=== PATIENT | female | born 1925 | race Caucasian/White ===

== ENCOUNTER 2016-09-16 11:45 | Inpatient (IN) | payer MEDICARE ==
[~2016-09-16] VITALS: Ht 162.6 cm; Wt 91.4 kg
--- NOTE | ~2016-09-16 | ECH ---
Transthoracic Echocardiography Report (TTE) Demographics Patient Name OSMIN WEAVER Date of Study 09/19/2016 Patient Number [id number] Visit Number [id number] Date of 1925 Room Number 308 Accession Number [id number] Gender Female Age 89 year(s) Referring Abdulaziz Lezama Ice Platform Supervisor Sherrell Walter Physician [facility] Chirag Vasquez MD Physician Interpreting Kassandra DIAZ Glass Beveler Physician Maury Supervising Ordering Physician Abdulaziz Lezama MD/JACKIE DIAZ Nurse Stress Manager Medical Device Conclusions Contractility Score Summary Normal Left Ventricular contractility was noted. Summary Limited exam to evaluate change/worsening murmur. The estimated left ventricular ejection fraction is 60%. Severe biatrial enlargement. Moderate mitral regurgitation by color Doppler. There is trivial aortic regurgitation by color Doppler. Moderate-severe tricuspid regurgitation by color Doppler. There is moderate pulmonary hypertension. The pulmonary pressure (RVSP) is 47 mmHg. Pulmonary pressures minimally increased from 39 mmHg on previous exam of 09/16/2016. Recommendation The patient will be given the results of this study by the physician who ordered the exam. Procedure Type of Study TTE procedure:Echo Limited SF. Procedure Date Date: 09/19/2016 Start: 02:04 PM Technical Quality: Adequate visualization Indications:Atrial fibrillation, non-ischemic cardiomyopathy, Congestive heart failure and Hypertension. Additional Indications:Worsening murmur Appropriate Use Criteria: 9 Height: 64 inches Weight: 184 pounds BSA: 1.89 m Rhythm: Paced HR: 70 bpm BP: 115/53 mmHg Doppler Measurements TR Velocity:3.25 m/s TR Gradient:42.25 mmHg Estimated RAP:5 mmHg Estimated PASP: 47.25 mmHg Estimated RVSP: 47 mmHg Findings Left Atrium The left atrium is severely dilated. Right Atrium The right atrium is severely dilated. Mitral Valve Normal mitral valve structure and function. Mild-moderate mitral regurgitation by color Doppler. Aortic Valve The aortic valve is mildly sclerotic. There is trivial aortic regurgitation by color Doppler. Tricuspid Valve Normal tricuspid valve structure and function. Moderate-severe tricuspid regurgitation by color Doppler. There is moderate pulmonary hypertension. The pulmonary pressure (RVSP) is 47 mmHg. Pulmonic Valve Normal pulmonic valve structure and function. Mild pulmonic valve regurgitation by color Doppler. Contractility Score LV regional wall motion:(0-Non visualized 1-Normal 2-Hypokinesis 3-Akinesis 4-Dyskinesis 5-Aneurysm) Signature
--- NOTE | ~2016-09-16 | ECH ---
Transthoracic Echocardiography Report (TTE) Demographics Patient Name OSMIN WEAVER Date of Study 09/16/2016 Patient Number [id number] Visit Number [id number] Date of 1925 Room Number 308 Accession Number [id number] Gender Female Age 89 year(s) Referring King Kevin Hutson MD Mailroom Coordinator Enma Guzman [facility] Physician Chirag Vasquez MD Physician Interpreting King Kevin Hutson MD Differential Specialist Physician Supervising Ordering Physician Chirag Vasquez MD/JACKIE DIAZ Nurse Stress Target Protection Specialist Conclusions Summary Technically fair exam. The estimated left ventricular ejection fraction is 55% in underlying atrial fibrillation. The left ventricle is mildly dilated . The interventricular septum is flattened which is consistent with right ventricular pressure / and or volume overload. Mildly dilated right ventricle. The left atrium is severely dilated by LA volume index measurement. The right atrium is severely dilated. Moderate mitral regurgitation by color Doppler. There is trivial aortic regurgitation by color Doppler. Moderate-severe tricuspid regurgitation by color Doppler. There is mild pulmonary hypertension. The pulmonary pressure (RVSP) is 39mmHg. Visualized portions of the aortic root and ascending aorta appear normal in size.IVC mildly dilated with poor inspiratory collapse. Procedure Type of Study TTE procedure:Echo Complete SF. Procedure Date Date: 09/16/2016 Start: 02:06 PM Technical Quality: Fair due to patient immobility. Indications:Atrial fibrillation, non-ischemic cardiomyopathy and Congestive heart failure. Appropriate Use Criteria: 9 Height: 64 inches Weight: 184 pounds BSA: 1.89 m Rhythm: Irregular HR: 52 bpm BP: 74/44 mmHg M-Mode/2D Measurements LV Diastolic Dimension: 5.55 cm LV Systolic Dimension: 3.11 cm LV Septum Diastolic: 0.89 cm LV PW Diastolic: 0.96 cm AO Root Dimension: 2.55 cm Cardiac Output: 1.56 l/min LA Dimension: 5.48 cm Cardiac Index: 0.83 l/min*m RV Diastolic Dimension: 4.82 cm LA volume index: 113 ml/m LVOT: 1.76 cm LVOT VTI: 12.31 cm RV Base: 5.2 cm LV Stroke volume: 29.93 ml RV Mid: 3.5 cm LV Stroke volume index: 15.84 ml/m RV Length: 6.7 cm Doppler Measurements AV Peak Velocity: 1.4 m/s MV Peak E-Wave: 0.65 m/s AV Peak Gradient: 7.84 mmHg LVOT Peak Velocity: 0.67 m/s TR Velocity:2.45 m/s TR Gradient:24.01 mmHg Estimated RAP:15 mmHg Estimated PASP: 39.01 mmHg Estimated RVSP: 39 mmHg RA Area: 34.86 cm Findings Left Ventricle The left ventricle is mildly dilated . Diastolic function indeterminate due to patient's arrhythmia. The interventricular septum is flattened which is consistent with right ventricular pressure / and or volume overload. Right Ventricle Mildly dilated right ventricle. Device lead noted in the right ventricle. Left Atrium The left atrium is severely dilated by LA volume index measurement. Right Atrium The right atrium is severely dilated. Device lead seen in the right atrium. Mitral Valve Mild thickening of the mitral valve leaflets. Moderate mitral regurgitation by color Doppler. Aortic Valve The aortic valve was not well imaged but appears moderately sclerotic. There is trivial aortic regurgitation by color Doppler. Tricuspid Valve Normal appearing tricuspid valve. Moderate-severe tricuspid regurgitation by color Doppler. There is mild pulmonary hypertension. The pulmonary pressure (RVSP) is 39mmHg. Pulmonic Valve The pulmonic valve is not well visualized. Pericardial Effusion No evidence of pericardial effusion. Miscellaneous Visualized portions of the aortic root and ascending aorta appear normal in size.IVC mildly dilated with poor inspiratory collapse. Pleural Effusion No evidence of pleural effusion. Contractility Score LV regional wall motion:(0-Non visualized 1-Normal 2-Hypokinesis 3-Akinesis 4-Dyskinesis 5-Aneurysm) Signature
[~2016-09-16 11:45] MED LIST: ALDACTONE DPS25 MG PO; ASPIR 8181 MG PO; COUMADIN DPS2 MG PO; DIOVAN80 MG PO; LASIX DPS40 MG PO; SYNTHROID DP0.125 MG PO; TOPROL XL DPS50 MG PO
--- NOTE | 2016-09-17 09:36 | HP ---
ADMIT: 09/16/2016 RM/LOC: 308 [facility] MR#: [id number] [address] [address] [address] [place] [address] History and Physical SEX: F AGE: 89 : 1925 DATE OF SERVICE: CHIEF COMPLAINT: Abdominal pain, further evaluation of pelvic mass. HISTORY OF PRESENT ILLNESS: Ms. Weaver is an 89-year-old female. She has a past medical history significant for history of atrial fibrillation, hypertension, hypothyroidism, history of colon cancer, status post resection as well as a previous history of coronary artery disease, who was transferred from [place] today. Patient was seen in [place] and admitted 09/15 for abdominal pain. She notes she had 2-3 weeks of abdominal pain. She notes she has been having right shoulder pain as well. She reports the pain is intermittent. She is not sure of anything that makes the pain better or worse. She was seen and evaluated yesterday in [place] and at that time, actually sounds like she had a CT scan which did show a right pelvic mass as well as right upper quadrant pain. They had spoken with Dr. Gaitan and decision was made to transfer patient here for further evaluation. Of note, it sounds as if she was also noted to be having some CHF and they went ahead and apparently did some diuresis, but then also had a CT scan with contrast and apparently with that they decided to do some gentle hydration. On admission here, her vital signs show that her systolics in the 70s which apparently looks like it has been running in the 80s last 24 hours. The patient is unaware that she has had trouble with hypotension in the past. She denies any change in her ostomy output. Otherwise really denies any other symptoms. PAST MEDICAL HISTORY: Significant for: 1. Atrial fibrillation on chronic anticoagulation. 2. Hypertension. 3. Hypothyroidism. 4. History of colon cancer with apparently resection and ostomy placement over 26 years ago. 5. Status post right total hip arthroplasty in 2015. 6. Gout. 7. Possible history of coronary artery disease. 8. Status post thyroidectomy. 9. History of gastroesophageal reflux disease. ALLERGIES: HER ALLERGIES ARE CODEINE WELL AVELOX. MEDICATIONS: At home currently are: 1. Allopurinol 100 mg p.o. daily. 2. Macrobid, she was finishing for UTI. 3. Coumadin 3 mg daily. 4. Valsartan 80 mg daily. 5. Spironolactone 25 mg p.o. daily. 6. Toprol 150 p.o. daily. 7. Levothyroxine 125 mcg p.o. daily. 8. Furosemide 40 mg p.o. daily. 9. Aspirin 81 mg p.o. daily. ADMIT: 09/16/2016 RM/LOC: 308 [facility] MR#: [id number] [address] [address] OSMIN WEAVER [address] [place] [address] History and Physical SEX: F AGE: 89 : 1925 FAMILY HISTORY: Mother from a stroke. Father also . Brother from unknown health causes and has a sister who from heart issues. SOCIAL HISTORY: She is , lives with her son. She does not use any significant alcohol or smoke. REVIEW OF SYSTEMS: Obtained. She does report that she has been having some increased shortness of breath. She denies any cough, fevers, or any other complaints. PHYSICAL EXAMINATION: GENERAL: She is alert and oriented. She really appears to be in no apparent distress. HEENT: Pupils are round, reactive. Oropharynx has dry mucous membranes. NECK: Supple. She does have marked JVD up to the neck. HEART: Very distant. Normal rate. LUNGS: A few crackles bilaterally. ABDOMEN: Soft. Bowel sounds are present. She does have an ostomy that is intact. She does have some kind of right mid epigastric pain on palpation. EXTREMITIES: Have 1+ lower extremity edema. ASSESSMENT/PLAN: 1. Abdominal pain. At this time with her associated right shoulder pain, I am suspicious of possible gallbladder disorder, has had an ultrasound I believe. We will ask Surgery to see to review this. 2. Right pelvic mass. 3. Supratherapeutic INR. We will recheck it. 4. Hypotension, etiology of this is unclear. We will try to maintain a goal systolic at least greater than 80. We will ask Cardiology to see. Place her on a dopamine drip if needed. 5. Acute congestive heart failure. We will get an echo to evaluate the kind of CHF that she has. 6. Atrial fibrillation. 7. Elevated creatinine. I assume this is acute. She did have a creatinine in 2014 that was 1.1. 8. Hypothyroidism. We will go ahead and check a TSH. I did spend 40 minutes in the admission and evaluation of this patient. Janeen Beard MD/ iliana JOB #: [id number] CC: Janeen Beard, Attending Physician UNKNOWN, Family Physician
[2016-09-22] MEDS ORDERED: TOPROL XL DPS25 MG PO (09:18)
[2016-09-22] MEDS ORDERED: LASIX DPS40 MG PO (09:18)
[2016-09-22] MEDS ORDERED: ASPIR 8181 MG PO (09:19)
[2016-09-22] MEDS ORDERED: ZYLOPRIM-DPS100 MG PO (09:19)
[2016-09-22] MEDS ORDERED: COUMADIN DPS3 MG PO (09:19)
[2016-09-22] MEDS ORDERED: SYNTHROID DP0.125 MG PO (09:19)
[2016-09-22] MEDS ORDERED: TYLENOL DPS325 MG PO (09:20)
[2016-09-22] MEDS ORDERED: AUGMENTIN 500-1 EACH PO (09:20)
--- NOTE | 2016-09-26 17:02 | CO ---
ADMIT: 09/16/2016 RM/LOC: 308 [facility] MR#: [id number] [address] [address] [address] [place] [address] Consultation SEX: F AGE: 89 : 1925 DATE OF CONSULTATION: 09/16/2016 ATTENDING PHYSICIAN: Janeen Beard CONSULTING PHYSICIAN: Kevin Klein MD REASON FOR CONSULTATION: Hypotension, CHF. HISTORY OF PRESENT ILLNESS: Osmin is a pleasant 89-year-old female, who was admitted for further workup of newly discovered pelvic mass. She had been hospitalized in [place], [place] for abdominal pain, CHF exacerbation, and chronic kidney disease exacerbation. She was subsequently transferred here for further workup and management of these chronic problems. She has been hypotensive, and on arrival, she was given a fluid bolus as well as initiated on dopamine drip. She currently has no chest pain, palpitations, or increased shortness of breath. She does have some ongoing nausea which she states just started today. She states that over the last two weeks, she has had some increased swelling in her legs. CARDIAC HISTORY AND RISK FACTORS: She is known to our group and follows with Dr. Cintron regularly in [place], [place]. She has a history of chronic systolic heart failure, most recently described by Dr. Cintron in June 2016 as NYHA class III. She has a history of non-ischemic cardiomyopathy with an ejection fraction of 45% documented in February of 2016. She has had moderate to severe mitral regurgitation and tricuspid regurgitation. She is status post atrioventricular abimael ablation and biventricular pacemaker implantation for permanent atrial fibrillation. She has a history of hypertension which she states has been present over the last 60 years. Osmin is a lifetime never smoker. Her hypertension history is significant in that she states it has been present for 60 years. She denies having high blood cholesterol or diabetes. She has a family history of heart disease in her mother with myocardial infarction, and one sister with heart problems. She states her mother also suffered from a stroke. PAST MEDICAL HISTORY: Cardiac history as described above. She also has ongoing chronic kidney disease, gout, and a history of thyroid problems for which she is on thyroid hormone replacement. She has a distant history of colorectal cancer which she states she underwent surgery and chemotherapy greater than 35 years ago. She also suffers from osteoarthritis. SURGICAL HISTORY: Right hip replacement 3 years ago. Thyroid removal 25 years ago per patient report. Partial colectomy with ostomy placement about 35 years ago per patient. AV node ablation and biventricular pacemaker implantation 2008. ALLERGIES: SHE IS ALLERGIC TO QUINOLONES, CODEINE, AND MOXIFLOXACIN. ADMIT: 09/16/2016 RM/LOC: 308 [facility] MR#: [id number] [address] [place] [id number] OWEN[place]MIN Hubert [address] [facility] [place] [address] Consultation SEX: F AGE: 89 : 1925 CURRENT MEDICATIONS: 1. Synthroid. 2. Zyloprim. 3. Dopamine drip. 4. Normal saline. 5. Zofran as needed. 6. Morphine as needed. 7. Nitrostat as needed. HOME MEDICATIONS: 1. Furosemide. 2. Nitrofurantoin. 3. Metoprolol succinate. 4. Spironolactone. 5. Valsartan. 6. Allopurinol. 7. Levothyroxine. 8. Warfarin. 9. Aspirin. FAMILY HISTORY: Significant for heart disease in her mother and one sister. Her mother also suffered from a stroke. She states that there is a positive family history of cancer on her dad's side. 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 Her son lives in her home with her to help take care of her. She has 3 sons and one daughter. She consumes two cups of coffee per day. She denies use of alcohol or other illegal drugs. REVIEW OF SYSTEMS: GENERAL: Positive fatigue. Negative fever, chills, sweats, rash, or weight loss. EYES: Denies double vision, blurred vision, cataracts, or glaucoma. ENT: Denies hearing loss or problems with nose, mouth or throat. PULMONARY: Positive for intermittent cough. Denies sputum production, asthma, emphysema or bronchitis. Denies snoring loudly, wakefulness at night, or fatigue upon awakening. GASTROINTESTINAL: Denies heartburn or difficulty swallowing. No change in bowel habits. Denies dark or bloody stools. No history of ulcers, hiatal hernia, or gallbladder or liver disease. GENITOURINARY: Denies dysuria, hematuria, nocturia, urinary tract infection, or kidney stones. Denies history of renal insufficiency or failure. MUSCULOSKELETAL: Positive for arthritis and gout. Negative for muscle or other joint disease. ENDOCRINE: Positive for thyroid problems. Negative for diabetes. HEMATOLOGIC: Denies history of anemia, easy bruising. NEUROLOGIC: Denies chronic headaches, dizziness, syncope, stroke, seizures or numbness or tingling. PSYCHIATRIC: Denies history of mental illness or feelings of depression. ADMIT: 09/16/2016 RM/LOC: [address] [place] [address] MR#: [id number] [address] [place] [phone] OSMIN WEAVER [address] [place] [phone] Consultation SEX: F AGE: 89 : 1925 PHYSICAL EXAMINATION: VITAL SIGNS: Blood pressure 103/58, pulse 71, temp 96.3, and O2 saturation 100%. GENERAL: She is alert and oriented x3. SKIN: [place], warm and dry. EYES: Sclerae clear. No xanthelasmas. ENT: Oral mucosa is pink and moist. Positive for JVD. No carotid bruits. CHEST: Respirations are even and unlabored. Decreased breath sounds. HEART: Irregular. No murmurs, rubs or gallops. ABDOMEN: Soft and nontender. Positive bowel sounds. MUSCULOSKELETAL: Gait is normal. EXTREMITIES: Peripheral pulses palpable. No clubbing or cyanosis. Mild bilateral lower extremity edema. PSYCHIATRIC: Alert and oriented. Mood and affect are appropriate. DIAGNOSTIC STUDIES: WBC 5.4, hemoglobin 12.3, hematocrit 37.9, and platelets 176. Urea 101, creatinine 2.7, INR 3.3. CK 68, MB 2.9, troponin 0.031. TSH 3.39. Chest x-ray performed today revealed cardiomegaly and suspicious right lung base nodule. EKG reveals ventricular paced complexes. Echocardiogram repeated today revealed an ejection fraction of 50% to 55% as read by Dr. Klein. ASSESSMENT: per Dr. Klein: 1. Hypotension. 2. Permanent atrial fibrillation. 3. Non-ischemic cardiomyopathy with biventricular pacemaker. 4. Pelvic mass. 5. Chronic kidney disease. PLAN: We will continue to support pressors for now with dopamine and intravenous fluids. If there were signs of pulmonary edema, we would need to start her on IV Lasix. Her JVD and edema are likely related to high right- sided pressures from dilated right ventricle and tricuspid regurgitation. We will continue her on her current medications. We will defer anticoagulation to primary care due to possible need for biopsy or surgery for the mass. We will continue to follow closely. JULIO C Esquivel Student / Kevin Klein MD / alfreditol JOB #: [id number] CC: Janeen Beard, Attending Physician ADMIT: 09/16/2016 RM/LOC: 308 [facility] MR#: [id number] [address] [address] [address] [place] [address] Consultation SEX: F AGE: 89 : 1925 UNKNOWN, Family Physician
--- NOTE | 2016-09-30 01:17 | DS ---
ADMIT: 09/16/2016 RM/LOC: 519 [facility] MR#: [id number] [address] [address] [address] [place] [address] Discharge Summary SEX: F AGE: 89 : 1925 ADMISSION DATE: 09/16/2016 DISCHARGE DATE: 09/21/2016 DIAGNOSES: 1. Abdominal pain (right upper quadrant). 2. Pelvic mass. 3. A fib (trial fibrillation) - permanent. 4. Hypothyroidism. 5. Gout. 6. Chronic systolic heart failure. 7. Nonischemic cardiomyopathy with biventricular pacemaker. 8. Hypotension - resolved. 9. Urinary tract infection. 10.Acute kidney injury. 11.Weakness. 12.Right pulmonary nodule on chest x-ray. CONSULTS: 1. Cardiology with [facility]. 2. Interventional Radiology. 3. Surgery. PROCEDURE: Echocardiogram 09/16/2016 and 09/19/2016. Abdominal mass biopsy 09/20/2016 - CT guided. REASON FOR HOSPITALIZATION: Abdominal pain with pelvic mass, see dictated H and P. LABORATORY AND X-RAY DATA: Echocardiogram on 09/17/2015 was technically difficult but showed an EF of 55%, interventricular septum flattening consistent with right ventricular pressure or volume overload, moderate mitral regurgitation, some other valvular issues as well as moderate severe tricuspid regurgitation. Pulmonary pressure RVSP of 39. Repeat echo performed on 09/19/2016 did show an ejection fraction of 60%, severe biatrial enlargement, moderate mitral regurgitation, [id number] tricuspid regurgitation, moderate pulmonary hypertension with RVSP of 47. Sodium 147, potassium 4.5, chloride 118, CO2 18, BUN 101, down to 38, creatinine 2.7, down to 1.1. Blood sugar variable, calcium 8.1, total bilirubin was 0.6, direct 0.2, total protein was 6.3, albumin 3, alkaline phosphatase 66, AST 17, ALT 17, GFR 45. CPK 68, CK-MB 2.9, CA-125 70.4, TSH 3.39. INR on admission was 3.3, final value 1.31. White count was 6.8, hemoglobin 11.6, platelet count 161, cortisol 19.3. Urine creatinine was 70.5, urine sodium 8. Urine culture was unremarkable. Chest x-ray with cardiomegaly and a right lung base round nodule with a likely granuloma - suggest CT of the chest if indicated. HOSPITAL COURSE: Osmin was transferred down from outside facility mainly for a surgical consultation and possible biopsy. On arrival, she was placed in intensive care unit because of her underlying cardiovascular issues in congestive heart failure as well as acute renal failure. She was initially ADMIT: 09/16/2016 RM/LOC: 519 [facility] MR#: [id number] [address] [address] OSMIN WEAVER [address] [address] [address] [place] [address] Discharge Summary SEX: F AGE: 89 : 1925 given some fluids. Cardiology and surgery were asked to see. Echocardiogram was performed. She did have a few of her home medications continued except her Coumadin. Surgery did see. WILLIAM also was following. Due to her pressures, they did give her dopamine to see if that would assist with things. Her renal function had modestly improved. She was also placed on Zosyn for a possible UTI. This was given IV and then subsequently changed to Augmentin. Most of her other home medications were held. Her activity was gradually increased. INR was allowed to drift down to allow for further testing. Family and patient desired at least biopsy to see what this could be. Her CA- 125 was elevated making it suspect for an ovarian cancer primary. We continued to manage her fluid status with improvement of her renal function. It was clear that she would need assistance, as she is quite weak and short of breath. For this reason, placement was looked into closer to home per her preference. A facility was found. She did undergo a CT-guided biopsy of the pelvic mass. Results are still pending. She was going to follow up as an outpatient once the results were known and decide what treatment strategy should be entertained. On the day of discharge, she was a little more dyspneic, which goes along with the fact that she was not on diuretics and had rather significant valvular issues among other things. She was restarted on her Lasix and a lower dose of the Toprol because of her hypotension that she had throughout this hospital stay. She was a little anxious to hear about the result, but of course, we did not have them before she left. In addition, we restarted her Coumadin, and we will let this come up slowly. At this time, biopsy is pending. She did have a questionable nodule found on a chest x-ray, so it was suggested that she have followup, probable CT scan, with the issues that are going on. The nodule was not commented on on 09/19/2016, but I suspect it is probably there. At this time, she is dismissed to [facility] in a swing bed capacity. Medications will include: 1. Augmentin 500 b.i.d. for additional 5 days for her urine. 2. Synthroid 0.0125 mg daily. 3. Allopurinol 100 mg daily. 4. Tylenol 650 q.4h p.r.n. 5. Lasix 40 mg daily. 6. Metoprolol ER 25 mg daily. 7. Coumadin 3 mg daily. 8. Aspirin 81 mg daily. ADMIT: 09/16/2016 RM/LOC: 519 [facility] MR#: [id number] [address] [place] [phone] [address] [place] [id number] Discharge Summary SEX: F AGE: 89 : 1925 She will have lab on Friday including a CBC, BMP and protime. She should see her primary doctor next week, which I believe is Dr. Barrientos. Overall, prognosis is fair. Time spent 50 minutes. Ava Hodge MD/ dotty JOB #: [id number] CC: Janeen Beard MD, Attending Physician UNKNOWN, Family Physician . [facility] [place] MD Noé Cuevas MD Jeffrey K King, MD
--- NOTE | 2016-10-07 08:53 | CO ---
ADMIT: 09/16/2016 RM/LOC: 308 [facility] MR#: [id number] [address] [address] [address] [place] [address] Consultation SEX: F AGE: 89 : 1925 DATE OF CONSULTATION: 09/16/2016 ATTENDING PHYSICIAN: Janeen Beard CONSULTING PHYSICIAN: Alexis Pleitez MD REASON FOR CONSULTATION: Mass found on abdominal CT. HISTORY OF PRESENT ILLNESS: Osmin is a very pleasant 89-year-old female, who apparently has been having on and off abdominal pain for the last 2 to 3 weeks. It can be sharp in nature at sometimes. She has also felt nauseous from this, but denies any emesis. She has also noticed some weight loss in the last month or so but cannot determine exactly how much she has lost. She denies any diarrhea, constipation, dark or bloody stools. She further denies any fever, chills, or night sweats. Of note, the patient did have a colectomy with colostomy placement for colon cancer approximately 40 years [address] performed [address] De La Torre. She was previously seen in [place] for these complaints, where at that time, it was noted that she was hypotensive and with the request to workup a 10 cm mass found on CT, she was transferred to our facility for surgical management. PAST MEDICAL HISTORY: Significant for: 1. Hypertension. 2. Coronary artery disease. 3. Atrial fibrillation. 4. Gout. 5. Hypothyroidism. PAST SURGICAL HISTORY: 1. Colon resection with end colostomy performed by Dr. De La Torre, approximately 40 years ago. 2. Laparoscopic left inguinal hernia. 3. EGD. ALLERGIES: CODEINE, QUINOLONES, AND FLOXIN. FAMILY HISTORY: Noncontributory. SOCIAL HISTORY: The patient denies any tobacco, alcohol, or illicit drug use. REVIEW OF SYSTEMS: CONSTITUTIONAL: The patient denies any fever, chills, or night sweats. The rest of comprehensive 10-point review of systems was performed and all other systems are negative. PHYSICAL EXAMINATION: GENERAL: The patient is in no acute distress. She is alert and oriented. HEENT: Head is normocephalic and atraumatic. EOMS are intact. Conjunctivae free of icterus, erythema, or pallor. Pinnae, free of deformities. Nose, midline. No tracheal deviation. ADMIT: 09/16/2016 RM/LOC: 308 [facility] MR#: [id number] [address] [address] [address] [place] [address] Consultation SEX: F AGE: 89 : 1925 NECK: Supple. SKIN: Negative for jaundice, clubbing, edema, pallor, or cyanosis. LUNGS: Clear to auscultation bilaterally. Normal respiratory effort. HEART: Irregularly irregular rhythm noted upon auscultation. No murmurs noted. ABDOMEN: Soft, nondistended, but swelling in the left lower quadrant, consistent for a peristomal hernia. Mild tenderness diffuse throughout abdomen. Ostomy in place with stool in the bag. DIAGNOSTIC IMAGING: CT of abdomen and pelvis performed in [place] revealed a mass involving the lower pelvis in the cul-de-sac region with small amount ascites and stable large left lower quadrant abdominal wall hernia containing colon but nothing for obstruction. ASSESSMENT: Abdominal mass. PLAN: Per the patient they want this mass worked up, which is why she has transferred to our facility. So far, I have only had access to the CT read performed in [place], so I am waiting to see the CD and operative report performed by Dr. De La Torre from her surgery. I guess at that time, part of her uterus was resected during the operation. In the meantime, I will make sure she is comfortable and we will treat the hypotension before considering any surgical intervention. I have notified Dr. Pleitez of this consult and the patient is in agreement of this plan, had all her questions answered, and would like to proceed. Thank for the consultation of this patient. JULIO C Shine / Alexis Pleitez MD / iliana JOB #: [id number] CC: Janeen Beard, Attending Physician UNKNOWN, Family Physician
--- NOTE | 2016-10-07 08:53 | CO ---
ADMIT: 09/16/2016 RM/LOC: 519 [facility] MR#: [id number] [address] [address] [address] [place] [address] Consultation SEX: F AGE: 89 : 1925 Corrected: 09/25/2016 1216 njv DATE OF CONSULTATION: 09/16/2016 ATTENDING PHYSICIAN: Janeen Beard CONSULTING PHYSICIAN: Alexis Pleitez MD HISTORY OF PRESENT ILLNESS: The patient is an 89-year-old female, patient of Dr. Beard's, who has been admitted for nonspecific abdominal discomfort for the last several weeks, some nausea, and weight loss, who has had previous colectomy in the past and end colostomy for colon cancer by Dr. De La Torre many years ago. She is noted to be hypotensive, possibly septic, and has been treated by Dr. Beard. On radiographic workup was found have a pelvic mass. I was asked to see for assistance in evaluation. Her past medical history, surgical history, allergies, family history, social history, and review of systems are outlined by Pool's note. PHYSICAL EXAMINATION: VITAL SIGNS: She is afebrile. Vitals are stable. HEART: Irregularly irregular. LUNGS: Decreased breath sounds in the bases. ABDOMEN: Soft, nondistended, and nontender with stool in her ostomy bag with a peristomal hernia. ASSESSMENT AND PLAN: The patient is an 89-year-old with hypertension of unknown origin, currently on pressors and antibiotics. Once stable, we will work on getting her likely arranged for interventional biopsy of this pelvic mass. I do not know if family or the patient is interested in any type of surgical intervention other than just trying to figure out what is the origin of the mass. Alexis Pleitez MD/ iliana JOB #: [id number] CC: Janeen Beard, Attending Physician UNKNOWN, Family Physician Corrected: 09/25/2016 1216 njv
[2016-11-07] MEDS ORDERED: DUONEB DPS3 ML IH (18:57)
[2016-11-07] MEDS ORDERED: ASA CHILDREN'S81 MG NG (18:57)
[2016-11-07] MEDS ORDERED: ROBITUSSIN100 MG/5 M NG (18:58)
== END 2016-09-21 12:07 | DRG 315 ==
LOC: 3ICU 11:45 → 5MS 09-20 17:31
PROVIDERS: ADMIT Internal Medicine
PROC: 0JB83ZX Excision of Abdomen Subcutaneous Tissue and Fascia, Percutaneous Approach, Diagnostic (ICD-10-PCS; principal; 2016-09-20)
DX: I95.9 Hypotension, unspecified (principal); N17.9 Acute kidney failure, unspecified; I42.9 Cardiomyopathy, unspecified; I13.0 Hypertensive heart and chronic kidney disease with heart failure and stage 1 through stage 4 chronic kidney disease, or unspecified chronic kidney disease; I50.22 Chronic systolic (congestive) heart failure; N39.0 Urinary tract infection, site not specified; I27.2 Other secondary pulmonary hypertension; R19.00 Intra-abdominal and pelvic swelling, mass and lump, unspecified site; I36.1 Nonrheumatic tricuspid (valve) insufficiency; R91.1 Solitary pulmonary nodule; I25.10 Atherosclerotic heart disease of native coronary artery without angina pectoris; I48.2 Chronic atrial fibrillation; N18.9 Chronic kidney disease, unspecified; K43.5 Parastomal hernia without obstruction or gangrene; E89.0 Postprocedural hypothyroidism; I34.0 Nonrheumatic mitral (valve) insufficiency; M19.90 Unspecified osteoarthritis, unspecified site; K21.9 Gastro-esophageal reflux disease without esophagitis; R79.1 Abnormal coagulation profile; M10.9 Gout, unspecified; Z79.01 Long term (current) use of anticoagulants; Z85.038 Personal history of other malignant neoplasm of large intestine; Z93.3 Colostomy status; Z96.641 Presence of right artificial hip joint; Z79.82 Long term (current) use of aspirin; Z95.0 Presence of cardiac pacemaker